=== PATIENT | female | born 1990 | race Caucasian/White ===

== ENCOUNTER 2023-11-24 17:55 | Observation (INO) ==
[2023-11-24] MEDS ORDERED: IOPAMIDOL 100 ML BOTTLE IV ONE (17:56)
[2023-11-24 18:30] LABS: Basophils # (Auto) 0.04 K/mcL (0.00-0.30); Basophils % (Auto) 0.4 % (0.0-2.0); Eosinophils % (Auto) 4.2 % (0.0-7.0); Hematocrit 37.9 % (34.1-44.9); Hemoglobin 12.4 g/dL (11.2-15.7); Lymphocytes # (Auto) 4.35 K/mcL (1.50-4.80); Lymphocytes % (Auto) 45.3 % (15.5-49.0); Mean Cell Volume 89.2 fL (80.0-100.0); Mean Corpuscular HGB Conc 32.7 g/dL (31.0-36.0); Mean Platelet Volume 8.7 fL (8.8-12.5); Monocytes # (Auto) 0.82 K/mcL (0.10-0.90); Monocytes % (Auto) 8.5 % (1.0-12.0); Neutrophils % (Auto) 41.4 % (38.0-78.0); Platelet Count 340 K/mcL (140-440); RBC 4.25 M/mcL (3.59-5.38); Red Cell Distribution Width 13.5 % (11.5-14.5); WBC 9.6 K/mcL (4.5-11.0)
[2023-11-24] MEDS ORDERED: ASPIRIN 81 MG TAB.CHEW CHEWED ONE (18:35)
[2023-11-24 18:38] LABS: HCG,Serum Negative
[2023-11-24 18:47] LABS: ALT/SGPT 20 U/L (<40); AST/SGOT 20 U/L (<32); Albumin 4.1 gm/dL (3.2-5.2); Albumin/Globulin Ratio 1.2 (1.0-2.3); Alkaline Phosphatase 46 U/L (39-117); Bilirubin,Total < 0.2 mg/dL (0.1-1.0); Blood Urea Nitrogen 14 mg/dL (6-20); Calcium 9.3 mg/dL (8.6-10.4); Carbon Dioxide 24 mmol/L (22-30); Chloride 103 mmol/L (96-108); Globulin 3.4 gm/dL (2.2-3.7); Glomerular Filtration Rate 112; Glucose 89 mg/dL (70-105); Thyroid Stimulating Hormone 1.69 uIU/mL (0.27-5.01)
[2023-11-24] MEDS ORDERED: 0.9 % SODIUM CHLORIDE 1,000 ML IV ONE (18:53)
[2023-11-24 20:02] LABS: Amphetamine Screen,Urine None detected; Appearance,Urine CLEAR (Clear); Barbiturate Screen,Urine None detected; Benzodiazepines Screen,Urine None detected; Bilirubin,Urine Negative (Negative); Cannabinoid Screen,Urine None detected; Cocaine Screen,Urine None detected; Color,Urine COLORLESS; Culture Indicated,Urine No; Glucose,Urine (UA) Negative (Negative); Ketones,Urine Negative (Negative); Leukocyte Esterase,Urine Negative /uL (Negative); Nitrate,Urine Negative (Negative); Opiate Screen,Urine None detected; Oxycodone, Urine Screen None detected; Phencyclidine Screen,Urine None detected; Protein,Urine Negative (Negative); Specific Gravity,Urine 1.016 (1.000-1.035); Urine Blood Negative (Negative); Urobilinogen,Urine Negative
[2023-11-24] MEDS ORDERED: 0.9 % SODIUM CHLORIDE 1,000 ML IV SCH (22:16)
[2023-11-24] MEDS ORDERED: ACETAMINOPHEN 325 MG TABLET PO PRN (22:16)
[2023-11-24] MEDS ORDERED: IPRATROPIUM/ALBUTEROL 3 ML AMPUL.NEB NEB PRN (22:16)
[2023-11-24] MEDS ORDERED: POTASSIUM CHLORIDE 20 MEQ TABLET PO PRN ×2 (22:16)
[2023-11-24] MEDS ORDERED: MAGNESIUM SULFATE 2 GM/50 ML BAG IV PRN (22:16)
[2023-11-24] MEDS ORDERED: ATORVASTATIN 40 MG TABLET PO SCH (22:16)
[2023-11-24] MEDS ORDERED: ONDANSETRON 4 MG/2 ML VIAL IV PRN (22:16)
[2023-11-24] MEDS ORDERED: POTASSIUM CHLORIDE 40 MEQ in DEXTROSE 5% IN WATER 500 ML IV PRN (22:16)
[2023-11-24 22:57] LABS: HDL Cholesterol 83 mg/dL (>40); LDL Cholesterol,Calculated 145 mg/dL (<100); Non-HDL Cholesterol 166 mg/dL (<130); Triglycerides 106 mg/dL (<150)
[2023-11-24] MEDS ORDERED: ATORVASTATIN 40 MG TABLET ONE (23:38)
[2023-11-24] MEDS: CLOPIDOGREL 75 MG TABLET PO SCH (23:55)
[2023-11-25 06:23] LABS: Basophils # (Auto) 0.03 K/mcL (0.00-0.30); Basophils % (Auto) 0.4 % (0.0-2.0); Eosinophils # (Auto) 0.51 K/mcL (0.00-0.70); Eosinophils % (Auto) 6.8 % (0.0-7.0); Hematocrit 35.5 % (34.1-44.9); Hemoglobin 11.4 g/dL (11.2-15.7); Lymphocytes # (Auto) 3.26 K/mcL (1.50-4.80); Lymphocytes % (Auto) 43.4 % (15.5-49.0); Mean Cell Volume 90.8 fL (80.0-100.0); Mean Corpuscular HGB Conc 32.1 g/dL (31.0-36.0); Mean Platelet Volume 8.7 fL (8.8-12.5); Monocytes # (Auto) 0.82 K/mcL (0.10-0.90); Monocytes % (Auto) 10.9 % (1.0-12.0); Neutrophils % (Auto) 38.4 % (38.0-78.0); Platelet Count 280 K/mcL (140-440); RBC 3.91 M/mcL (3.59-5.38); Red Cell Distribution Width 13.5 % (11.5-14.5); WBC 7.5 K/mcL (4.5-11.0)
[2023-11-25 06:24] LABS: ALT/SGPT 7 U/L (<40); AST/SGOT 16 U/L (<32); Albumin 3.5 gm/dL (3.2-5.2); Albumin/Globulin Ratio 1.3 (1.0-2.3); Alkaline Phosphatase 38 U/L (39-117); Bilirubin,Direct < 0.2 mg/dL (0-0.3); Bilirubin,Total 0.4 mg/dL (0.1-1.0); Blood Urea Nitrogen 9 mg/dL (6-20); Calcium 8.6 mg/dL (8.6-10.4); Carbon Dioxide 20 mmol/L (22-30); Chloride 109 mmol/L (96-108); Globulin 2.8 gm/dL (2.2-3.7); Glomerular Filtration Rate 118; Glucose 89 mg/dL (70-105); Lactate Dehydrogenase 127 U/L (135-225); Phosphorous 3.1 mg/dL (2.5-4.5); Triglycerides 64 mg/dL (<150); Uric Acid 5.2 mg/dL (2.5-8.0)
[2023-11-25] MEDS: CLOPIDOGREL 75 MG TABLET PO SCH (08:38)
[2023-11-25] MEDS ORDERED: ENOXAPARIN 40 MG/0.4 ML SYRINGE SQ SCH (09:00)
[2023-11-25] MEDS ORDERED: BUDESONIDE GLYCOPYR FORMOTEROL INH SCH (09:00)
[2023-11-25] MEDS ORDERED: NON FORMULARY MEDICATION 1 DOSE MISCELL (Budesonide-Glycopyr-Formoterol [Breztri Aerospher INHALATION SCH (09:00)
[2023-11-25] MEDS ORDERED: ASPIRIN 81 MG TAB.CHEW CHEWED SCH (09:00)
[2023-11-25] MEDS ORDERED: MONTELUKAST 10 MG TABLET PO SCH ×2 (09:00)
[2023-11-25] MEDS ORDERED: AMOXICILLIN/POTASSIUM CLAV 875 MG TABLET PO ONE (11:30)
== END 2023-11-25 13:16 | disposition home or self-care (01) ==
LOC: ICU 17:55 → ED 17:55 → ICU 22:00
PROVIDERS: ADMIT Internal Medicine; ATTEND Internal Medicine